=== PATIENT | female | born 1995 | race African-American/Black ===

== ENCOUNTER 2021-11-09 13:32 | Inpatient (IN) | payer MEDICAID ==
[~2021-11-09] VITALS: Ht 160 cm; Wt 53.5 kg
[2021-11-09] MEDS ORDERED: ZOLPIDEM TARTRATE 10 MG TABLET PO PRN (17:00)
[2021-11-09] MEDS ORDERED: HALOPERIDOL 5 MG TABLET PO PRN (17:00)
[2021-11-09] MEDS ORDERED: TRAZ-257 PO (17:25)
[2021-11-09] MEDS ORDERED: VENL-193 PO (17:25)
[2021-11-09 17:33] VITALS: BP 110/68
[2021-11-10] MEDS: LORazepam 2 MG TABLET PO PRN ×2 (02:08→20:01)
[2021-11-10 02:20] VITALS: BP 127/97
[2021-11-10 07:48] LABS: EOSINOPHILS % (AUTO) 0.2 % (1.0-6.0); HEMATOCRIT 41.1 % (36-46); HEMOGLOBIN 13.6 g/dL (12.0-16.0); LYMPHOCYTES # (AUTO) 1.7 K/uL (1.0-4.8); MEAN CORPUSCULAR HEMOGLOBIN 29.4 pg (26.0-34.0); MEAN CORPUSCULAR HGB CONC 33.1 G/dL (31.0-37.0); MEAN CORPUSCULAR VOLUME 89 fL (80-100); MONOCYTES # (AUTO) 0.3 K/uL (0.1-1.0); MONOCYTES % (AUTO) 6.6 % (2.0-9.0); NEUTROPHILS % (AUTO) 58.2 % (40.0-70.0); PLATELET COUNT (AUTO) 278 K/uL (150-450); RED BLOOD CELL COUNT(AUTO) 4.63 MIL/uL (4.00-5.20); RED CELL DISTRIBUTION WIDTH 14.5 % (11.5-14.5)
[2021-11-10 07:58] LABS: HEMOGLOBIN A1C 5.4 % (3.8-5.6)
[2021-11-10] MEDS ORDERED: DICYCLOMINE HCL 20 MG TABLET PO PRN (08:00)
[2021-11-10 08:12] VITALS: BP 107/73
[2021-11-10 08:25] LABS: ALANINE AMINOTRANSFERASE 28 U/L (12-78); ALBUMIN 4.7 g/dL (3.4-5.0); ALKALINE PHOSPHATASE 61 U/L (46-116); ANION GAP 9 mmol/L (8-16); ASPARTATE AMINOTRANSFERASE 14 U/L (15-37); BILIRUBIN,TOTAL 0.7 mg/dL (0.1-1.0); CARBON DIOXIDE 26 mmol/L (22-29); CHLORIDE 105 mmol/L (98-107); CHOL/HDL RATIO 2.2 (3.9-5.7); CHOLESTEROL 166 mg/dL (131-200); CREATININE 0.79 mg/dL (0.60-1.30); FREE T4 (FREE THYROXINE) 1.01 ng/dL (0.76-1.46); GLOMERULAR FILTR. RATE CALC > 60 mL/min (>60); GLUCOSE,RANDOM 76 mg/dL (70-110); HCG,QUANTITATIVE < 1 mIU/mL (0-6); HDL CHOLESTEROL 75 mg/dL (40-60); LDL CHOL (CALC.) 78 mg/dL (0-130); POTASSIUM 4.3 mmol/L (3.5-5.1); SODIUM SERUM 140 mmol/L (136-145); THYROID STIMULATING HORMONE 1.04 uIU/mL (0.36-3.74); TOTAL PROTEIN, SERUM 7.8 g/dL (6.4-8.2); TRIGLYCERIDES 64 mg/dL (15-150); UREA NITROGEN, BLOOD 8 mg/dL (7-18)
[2021-11-10] MEDS ORDERED: DICY20TA95 PO (10:56)
[2021-11-10] MEDS ORDERED: ONDA4TAB10 PO (10:56)
[2021-11-10] MEDS ORDERED: LEVO1TAB72 PO ×2 (10:56→12:27)
[2021-11-10] MEDS ORDERED: TRAZ-252 PO (10:56)
[2021-11-10] MEDS ORDERED: NICOTINE 14 MG/24 HOUR PATCH TD PRN (11:00)
[2021-11-10] MEDS ORDERED: IBUPROFEN 400 MG TABLET PO PRN (11:00)
[2021-11-10] MEDS ORDERED: GuaiFENesin/D-METHORPHAN [SUGAR-FREE] 200-20MG/10 ML SYRUP UDCUP PO PRN (11:00)
[2021-11-10] MEDS ORDERED: ACETAMINOPHEN 325 MG TABLET PO PRN (11:00)
[2021-11-10] MEDS ORDERED: ALBUTEROL SULFATE HFA 90 MCG/PUFF 8 GM INHALER IH PRN (11:00)
[2021-11-10] MEDS ORDERED: LOPERAMIDE HCL 2 MG CAPSULE PO PRN (11:00)
[2021-11-10] MEDS ORDERED: CloNIDine HCL 0.1 MG TABLET PO PRN (11:00)
[2021-11-10] MEDS ORDERED: MAGNESIUM HYDROXIDE SUSPENSION 30 ML UDCUP PO PRN (11:00)
[2021-11-10] MEDS ORDERED: DOCUSATE SODIUM 100 MG CAPSULE PO PRN (11:00)
[2021-11-10] MEDS ORDERED: PETROLATUM,WHITE 28 GM JELLY TP PRN (11:00)
[2021-11-10] MEDS ORDERED: MAG HYDROX/AL HYDROX/SIMETH ES 30 ML SUSPENSION UDCUP PO PRN (11:00)
[2021-11-10] MEDS: ONDANSETRON HCL 4 MG TABLET PO PRN (11:59)
[2021-11-10] MEDS ORDERED: VENLAFAXINE HCL 75 MG TABLET PO SCH (13:00)
[2021-11-10] MEDS ORDERED: DICYCLOMINE HCL 20 MG TABLET PO SCH (13:00)
[2021-11-10] MEDS: VENLAFAXINE HCL 50 MG TABLET PO SCH (15:37)
[2021-11-10 16:13] VITALS: BP 117/70
[2021-11-10] MEDS: DICYCLOMINE HCL 20 MG TABLET PO SCH (17:01)
[2021-11-10] MEDS: TraZODone HCL 100 MG TABLET PO SCH (20:01)
[2021-11-11 05:53] VITALS: BP 111/78
[2021-11-11] MEDS: DICYCLOMINE HCL 20 MG TABLET PO SCH ×3 (06:34→16:49)
[2021-11-11 07:34] LABS: APPEARANCE,URINE CLEAR (CLEAR); BILIRUBIN,URINE NEGATIVE (NEGATIVE); GLUCOSE, URINE (UA) NEGATIVE (NEGATIVE); LEUKOCYTE ESTERASE ,URINE SMALL (NEGATIVE); NITRATE,URINE NEGATIVE (NEGATIVE); OCCULT BLOOD,URINE NEGATIVE (NEGATIVE); PH,URINE 6.5 (5.0-8.0); PROTEIN,URINE NEGATIVE (NEGATIVE); SPECIFIC GRAVITIY, URINE 1.008 (1.003-1.030); UROBILINOGEN,URINE <=1.0 mg/dL (<=1.0)
[2021-11-11 07:36] LABS: AMPHET/METH SCREEN,URINE NEGATIVE (NEGATIVE); BARBITURATE SCREEN, URINE NEGATIVE (NEGATIVE); BENZODIAZEPINES SCREEN,URINE NEGATIVE (NEGATIVE); CANNABINOID SCREEN,URINE POSITIVE (NEGATIVE); COCAINE SCREEN,URINE NEGATIVE (NEGATIVE); METHADONE SCREEN, URINE NEGATIVE (NEGATIVE); OPIATE SCREEN,URINE NEGATIVE (NEGATIVE)
[2021-11-11 07:53] LABS: PHENCYCLIDINE SCREEN,URINE NEGATIVE (NEGATIVE)
[2021-11-11 07:59] LABS: BACTERIA,URINE None Seen /HPF (None Seen); RBC,URINE None Seen /HPF (0-2); SQUAMOUS EPITHELIAL CELL,UR Few /LPF (None Seen)
[2021-11-11] MEDS: VENLAFAXINE HCL 50 MG TABLET PO SCH ×2 (08:05→12:51)
[2021-11-11 08:12] VITALS: BP 98/60
[2021-11-11] MEDS: ONDANSETRON HCL 4 MG TABLET PO PRN (09:27)
[2021-11-11] MEDS: LORazepam 2 MG TABLET PO PRN (11:11)
[2021-11-11] MEDS: DIVALPROEX SODIUM 250 MG DR TABLET PO SCH ×2 (11:25→20:11)
[2021-11-11] MEDS: TraZODone HCL 100 MG TABLET PO SCH (20:11)
[2021-11-12 06:18] VITALS: BP 100/61
[2021-11-12] MEDS: DICYCLOMINE HCL 20 MG TABLET PO SCH ×3 (06:23→17:00)
[2021-11-12] MEDS: VENLAFAXINE HCL 50 MG TABLET PO SCH ×2 (08:05→12:48)
[2021-11-12] MEDS: DIVALPROEX SODIUM 250 MG DR TABLET PO SCH ×2 (08:05→20:01)
[2021-11-12] MEDS: LORazepam 2 MG TABLET PO PRN (10:39)
[2021-11-12 10:46] VITALS: BP 119/63
[2021-11-12 16:08] VITALS: BP 117/68
[2021-11-12] MEDS: ONDANSETRON HCL 4 MG TABLET PO PRN (20:01)
[2021-11-12] MEDS: TraZODone HCL 100 MG TABLET PO SCH (20:01)
[2021-11-13 00:46] VITALS: BP 109/66
[2021-11-13] MEDS: DICYCLOMINE HCL 20 MG TABLET PO SCH ×3 (06:33→16:28)
[2021-11-13 08:09] VITALS: BP 100/77
[2021-11-13] MEDS: VENLAFAXINE HCL 50 MG TABLET PO SCH ×2 (08:48→13:37)
[2021-11-13] MEDS: DIVALPROEX SODIUM 250 MG DR TABLET PO SCH (08:49)
[2021-11-13] MEDS: ONDANSETRON HCL 4 MG TABLET PO PRN (11:38)
[2021-11-13 16:19] VITALS: BP 110/77
[2021-11-13] MEDS ORDERED: TRAZ-252 PO (16:52)
[2021-11-13] MEDS ORDERED: ONDA4TAB10 PO (16:52)
[2021-11-13] MEDS ORDERED: DICY20TA95 PO (16:52)
[2021-11-13] MEDS ORDERED: DIVA-111 PO (16:52)
[2021-11-13] MEDS ORDERED: VENL-193 PO (16:52)
== END 2021-11-13 18:10 | disposition home or self-care (01) | DRG 753 ==
LOC: B2S 16:51
PROVIDERS: ADMIT Psychiatry & Neurology Psychiatry; ATTEND Psychiatry & Neurology Psychiatry
DX: F31.63 Bipolar disorder, current episode mixed, severe, without psychotic features (principal); I95.9 Hypotension, unspecified; F10.10 Alcohol abuse, uncomplicated; F19.10 Other psychoactive substance abuse, uncomplicated; Z20.822 Contact with and (suspected) exposure to COVID-19; K58.9 Irritable bowel syndrome, unspecified; Z71.41 Alcohol abuse counseling and surveillance of alcoholic; Z79.899 Other long term (current) drug therapy; Z91.51 Personal history of suicidal behavior; Z88.0 Allergy status to penicillin; Z91.09 Other allergy status, other than to drugs and biological substances; Z91.018 Allergy to other foods
CPT/HCPCS: 80053; 80061; 80307; 81001; 83036; 84439; 84443; 84702; 85025; Q0162